=== PATIENT | male | born 1985 | race Caucasian/White ===

== ENCOUNTER 2025-01-29 19:34 | Emergency (ER) | payer SELFPAY ==
[~2025-01-29] VITALS: Ht 160 cm; Wt 52.0 kg
[2025-01-29 19:38] VITALS: O2SAT 99
[2025-01-29] MEDS: PANTOPRAZOLE 40MG DR TABLET PO ONE (20:44)
[2025-01-29 21:22] LABS: HEMATOCRIT. 35.0 % (42.0-52.0); HEMOGLOBIN. 12.1 g/dL (14.0-18.0); MEAN PLATELET VOLUME 7.9 fl (7.4-10.4); PLATELET 159 x1000/uL (130-400); RED BLOOD CELL COUNT 3.70 mill/uL (4.7-6.1); RED CELL DISTRIBUTION WIDTH 15.6 % (11.6-14.6)
[2025-01-29 21:32] LABS: INR 1.3
[2025-01-29 21:35] LABS: CREATININE 0.9 mg/dL (0.6-1.3)
[2025-01-29 21:36] LABS: UREA NITROGEN BLOOD 5 mg/dL (9-23)
[2025-01-29 21:37] LABS: ASPARTATE AMINOTRANSFERASE 400 IU/L (<34)
[2025-01-29 21:38] LABS: BILIRUBIN DIRECT 1.3 mg/dL (<=3.0); BILIRUBIN TOTAL 1.9 mg/dL (0.1-1.0); PROTEIN TOTAL 5.6 g/dL (6.0-8.3)
[2025-01-29 21:42] LABS: EOSINOPHILS % MANUAL 2.0 % (0.0-5.0); LYMPHOCYTES % MANUAL 24.0 % (20.0-50.0); MONOCYTES % MANUAL 8.0 % (2.0-8.0); NEUTROPHILS % MANUAL 66.0 % (45.0-75.0); PLATELET ESTIMATE NORMAL
[2025-01-29] MEDS ORDERED: PROT40 MT (21:45)
[2025-01-29] MEDS ORDERED: AMOX1TAB16 MT (21:47)
[2025-01-29 22:47] VITALS: BP 128/53; PULSE 70; RESP 16; TEMP 36.9; O2SAT 100
== END 2025-01-29 22:55 | disposition home or self-care (01) ==
LOC: ER 19:34
DX: K52.9 Noninfective gastroenteritis and colitis, unspecified (principal); K76.0 Fatty (change of) liver, not elsewhere classified; F10.10 Alcohol abuse, uncomplicated
CPT/HCPCS: 36415; 74176; 80048; 80076; 85025; 86850; 86900; 99284